=== PATIENT | male | born 1955 | race American Indian/Alaskan Native ===

== ENCOUNTER 2019-04-13 18:26 | Emergency (ER) | payer SELFPAY ==
[2019-04-13 19:02] VITALS: BP 121/83
--- NOTE | 2019-04-13 19:02 | Event Note ---
ED Screening Note Date of service: 04/13/19 Time: 18:58 ED Screening Note: This is a 63 y.o. M. that presents to the ER with feet pain and nausea and vomiting for 2 days. This initial assessment/diagnostic orders/clinical plan/treatment(s) is/are subject to change based on patients health status, clinical progression and re- assessment by fellow clinical providers in the ED. Further treatment and workup at subsequent clinical providers discretion. Patient/guardian urged not to elope from the ED as their condition may be serious if not clinically assessed and managed. Initial orders include: XR bilateral foot
--- NOTE | 2019-04-13 19:32 | XRay Report ---
Examination: Bilateral foot radiograph, 2 views, 04/13/2019 Clinical information: Bilateral foot pain. No history of trauma. Comparison: None. Findings: Right foot: There is a hallux valgus deformity. No acute bony fracture or focal soft tissue swelling is identified. Left foot: There is a hallux valgus deformity. No acute bony fracture or significant soft tissue swel ling is identified. Impression: 1. No radiographic evidence of acute bony abnormality of either foot. Signer Name: Brandy Abbott MD Signed: 04/13/2019 7:27 PM Workstation Name: [id number]
== END 2019-04-13 20:05 | disposition left against medical advice (07) ==
LOC: ED 18:26
DX: M79.673 Pain in unspecified foot (principal); Z53.21 Procedure and treatment not carried out due to patient leaving prior to being seen by health care provider

== ENCOUNTER 2019-06-25 11:07 | Emergency (ER) | payer SELFPAY ==
--- NOTE | 2019-06-25 13:12 | Event Note ---
Date of service: 06/25/19 Face to Face: 63-year-old gentleman presenting with presumed psychosis, agitated behavior, disorganized behavior. Patient not overtly violent, however, he is disorganized, and his thought structure is nonsensical. He is placed on a 1013, psychiatric consultation will be requested, gearcase assembler consultation will be requested, screening laboratory studies ordered. Vital Signs 06/25/19 11:37 Temperature 98.0 F Pulse Rate 62 Respiratory 18 Rate Blood Pressure 109/87 O2 Sat by Pulse 97 Oximetry
[2019-06-25 13:26] LABS: Basophils % (Auto) 0.5 % (0.0-1.8); Eosinophils # (Auto) 0.1 K/mm3 (0.0-0.4); Eosinophils % (Auto) 1.3 % (0.0-4.3); Hematocrit 39.1 % (35.5-45.6); Hemoglobin 13.5 gm/dl (11.8-15.2); Lymphocytes # (Auto) 1.6 K/mm3 (1.2-5.4); Lymphocytes % (Auto) 23.3 % (13.4-35.0); Mean Corpuscular HGB Conc 35 % (32-34); Mean Corpuscular Volume 86 fl (84-94); Monocytes # (Auto) 0.4 K/mm3 (0.0-0.8); Platelet Count 331 K/mm3 (140-440); Red Blood Count 4.53 M/mm3 (3.65-5.03); Red Cell Distribution Width 14.8 % (13.2-15.2)
[2019-06-25 13:47] LABS: BUN/Creatinine Ratio 13; Blood Urea Nitrogen 10 mg/dL (9-20); Calcium 9.4 mg/dL (8.4-10.2); Hemolysis Index 4
--- NOTE | 2019-06-25 14:08 | Emergency Department Report ---
ED Psych HPI - General Chief Complaint: Psych Stated Complaint: MH Time Seen by Provider: 06/25/19 12:32 Source: police Mode of arrival: Ambulatory - History of Present Illness Initial Comments: Patient is a 63-year-old male presents to the emergency room for SI/HI. he is a poor historian and it is very difficult to perform a full history. Patient states that if he had "rat poison front of him he would take it now." Patient also threatened to blow the hospital up. The police reported to nursing staff that patient was at a gas station and someone gave him $10 to buy some cigarettes and he took a cigarette solar designer/installer and tried to scratch someone's car and told them he was going to kill them. pt only endorses a history of hernia, otherwise he will not discuss his medical history. - Related Data Home Medications Medication Instructions Recorded Confirmed Last Taken No Known Home Medications [No 06/23/15 06/26/19 Unknown Reported Home Medications] Allergies Allergy/AdvReac Type Severity Reaction Status Date / Time No Known Allergies Allergy Unverified 06/23/15 10:24 ED Review of Systems ROS: Stated complaint: MH Other details as noted in HPI Comment: Unobtainable due to pts medical conditions ED Past Medical Hx - Past Medical History Additional medical history: PT NOT ANSWERING QUESTIONS AT THIS TIME; WILL ATTEMPT AGAIN - Surgical History Additional Surgical History: PT NOT ANSWERING QUESTIONS AT THIS TIME; WILL ATTEMPT AGAIN - Social History Smoking Status: Current Every Day Smoker - Medications Home Medications: Home Medications Medication Instructions Recorded Confirmed Last Taken Type No Known Home Medications [No 06/23/15 06/26/19 Unknown History Reported Home Medications] ED Physical Exam - General Limitations: No Limitations General appearance: alert - Head Head exam: Present: atraumatic, normocephalic - Eye Eye exam: Present: normal appearance, EOMI - ENT ENT exam: Present: mucous membranes moist - Respiratory Respiratory exam: Present: normal lung sounds bilaterally. Absent: respiratory distress, wheezes, rales, rhonchi, stridor, chest wall tenderness, accessory muscle use, decreased breath sounds, prolonged expiratory - Cardiovascular Cardiovascular Exam: Present: regular rate, normal rhythm, normal heart sounds. Absent: systolic murmur, diastolic murmur, rubs, gallop - GI/Abdominal GI/Abdominal exam: Present: soft, normal bowel sounds, hernia (pt has hernia just above the umbilicus which he easily reduces on his own). Absent: distended, tenderness, guarding, rebound, rigid - Neurological Exam Neurological exam: Present: alert, other (oriented to self) - Psychiatric Psychiatric exam: Present: other (rambling, jumping from conversation to conversation ) - Skin Skin exam: Present: warm, dry ED Course Vital Signs 06/25/19 06/25/19 06/25/19 11:37 18:00 21:08 Temperature 98.0 F 97.2 F L 97.4 F L Pulse Rate 62 91 H 98 H Respiratory 18 18 16 Rate Blood Pressure 109/87 Blood Pressure 100/79 110/88 [100/79] O2 Sat by Pulse 97 95 96 Oximetry 06/26/19 06/26/19 06/26/19 03:07 07:00 18:59 Temperature 98.6 F 97.8 F 98.4 F Pulse Rate 86 94 H 89 Respiratory 20 20 18 Rate Blood Pressure Blood Pressure 102/56 121/83 102/72 [100/79] O2 Sat by Pulse 96 97 99 Oximetry 06/26/19 06/27/19 06/27/19 20:00 01:15 09:42 Temperature 98.2 F 98.1 F 97.8 F Pulse Rate 99 H 89 75 Respiratory 18 20 20 Rate Blood Pressure Blood Pressure 93/62 109/74 109/75 [100/79] O2 Sat by Pulse 97 100 100 Oximetry 06/27/19 06/28/19 20:00 01:00 Temperature 98.3 F 98.2 F Pulse Rate 100 H 85 Respiratory 18 16 Rate Blood Pressure Blood Pressure 120/79 109/69 [100/79] O2 Sat by Pulse 98 96 Oximetry ED Medical Decision Making - Lab Data Result diagrams: 06/25/19 13:11 06/25/19 13:11 Lab Results 06/25/19 06/25/19 06/25/19 Range/Units 13:11 13:11 13:11 WBC (4.5-11.0) K/mm3 RBC (3.65-5.03) M/mm3 Hgb (11.8-15.2) gm/dl Hct (35.5-45.6) % MCV (84-94) fl MCH (28-32) pg MCHC (32-34) % RDW (13.2-15.2) % Plt Count (140-440) K/mm3 Lymph % (Auto) (13.4-35.0) % [place] % (Auto) (0.0-7.3) % Eos % (Auto) (0.0-4.3) % Baso % (Auto) (0.0-1.8) % Lymph # (1.2-5.4) K/mm3 [place] # (0.0-0.8) K/mm3 Eos # (0.0-0.4) K/mm3 Baso # (0.0-0.1) K/mm3 Seg Neutrophils % (40.0-70.0) % Seg Neutrophils # (1.8-7.7) K/mm3 Sodium 141 (137-145) mmol/L Potassium 4.0 (3.6-5.0) mmol/L Chloride 101.1 (98-107) mmol/L Carbon Dioxide 28 (22-30) mmol/L Anion Gap 16 mmol/L BUN 10 (9-20) mg/dL Creatinine 0.8 (0.8-1.5) mg/dL Estimated GFR > 60 ml/min BUN/Creatinine Ratio 13 % Glucose 111 H (75-100) mg/dL Hemoglobin A1c (4-6) % Calcium 9.4 (8.4-10.2) mg/dL Total Creatine Kinase (55-170) units/L Triglycerides (2-149) mg/dL Cholesterol (50-199) mg/dL LDL Cholesterol Direct (50-130) mg/dL HDL Cholesterol (40-59) mg/dL Cholesterol/HDL Ratio % Urine Color (Yellow) Urine Turbidity (Clear) Urine pH (5.0-7.0) Ur Specific [place] (1.003-1.030) Urine Protein (Negative) mg/dL Urine Glucose (UA) (Negative) mg/dL Urine Ketones (Negative) mg/dL Urine Blood (Negative) Urine Nitrite (Negative) Urine Bilirubin (Negative) Urine Urobilinogen (<2.0) mg/dL Ur Leukocyte Esterase (Negative) Urine WBC (Auto) (0.0-6.0) /HPF Urine RBC (Auto) (0.0-6.0) /HPF U Epithel Cells (Auto) (0-13.0) /HPF Urine Mucus /HPF Urine Sperm (SHOE MAKER) /HPF Salicylates < 0.3 L (2.8-20.0) mg/dL Urine Opiates Screen Urine Methadone Screen Acetaminophen < 5.0 L (10.0-30.0) ug/mL Ur Barbiturates Screen Ur Phencyclidine Scrn Ur Amphetamines Screen U Benzodiazepines Scrn Urine Cocaine Screen U Marijuana (THC) Screen Drugs of Abuse Note Plasma/Serum Alcohol (0-0.07) % 06/25/19 06/25/19 06/25/19 Range/Units 13:11 13:11 13:11 WBC 6.9 (4.5-11.0) K/mm3 RBC 4.53 (3.65-5.03) M/mm3 Hgb 13.5 (11.8-15.2) gm/dl Hct 39.1 (35.5-45.6) % MCV 86 (84-94) fl MCH 30 (28-32) pg MCHC 35 H (32-34) % RDW 14.8 (13.2-15.2) % Plt Count 331 (140-440) K/mm3 Lymph % (Auto) 23.3 (13.4-35.0) % [place] % (Auto) 6.0 (0.0-7.3) % Eos % (Auto) 1.3 (0.0-4.3) % Baso % (Auto) 0.5 (0.0-1.8) % Lymph # 1.6 (1.2-5.4) K/mm3 [place] # 0.4 (0.0-0.8) K/mm3 Eos # 0.1 (0.0-0.4) K/mm3 Baso # 0.0 (0.0-0.1) K/mm3 Seg Neutrophils % 68.9 (40.0-70.0) % Seg Neutrophils # 4.8 (1.8-7.7) K/mm3 Sodium (137-145) mmol/L Potassium (3.6-5.0) mmol/L Chloride (98-107) mmol/L Carbon Dioxide (22-30) mmol/L Anion Gap mmol/L BUN (9-20) mg/dL Creatinine (0.8-1.5) mg/dL Estimated GFR ml/min BUN/Creatinine Ratio % Glucose (75-100) mg/dL Hemoglobin A1c (4-6) % Calcium (8.4-10.2) mg/dL Total Creatine Kinase 200 H (55-170) units/L Triglycerides (2-149) mg/dL Cholesterol (50-199) mg/dL LDL Cholesterol Direct (50-130) mg/dL HDL Cholesterol (40-59) mg/dL Cholesterol/HDL Ratio % Urine Color (Yellow) Urine Turbidity (Clear) Urine pH (5.0-7.0) Ur Specific [place] (1.003-1.030) Urine Protein (Negative) mg/dL Urine Glucose (UA) (Negative) mg/dL Urine Ketones (Negative) mg/dL Urine Blood (Negative) Urine Nitrite (Negative) Urine Bilirubin (Negative) Urine Urobilinogen (<2.0) mg/dL Ur Leukocyte Esterase (Negative) Urine WBC (Auto) (0.0-6.0) /HPF Urine RBC (Auto) (0.0-6.0) /HPF U Epithel Cells (Auto) (0-13.0) /HPF Urine Mucus /HPF Urine Sperm (SHOE MAKER) /HPF Salicylates (2.8-20.0) mg/dL Urine Opiates Screen Urine Methadone Screen Acetaminophen (10.0-30.0) ug/mL Ur Barbiturates Screen Ur Phencyclidine Scrn Ur Amphetamines Screen U Benzodiazepines Scrn Urine Cocaine Screen U Marijuana (THC) Screen Drugs of Abuse Note Plasma/Serum Alcohol < 0.01 (0-0.07) % 06/25/19 06/25/19 06/27/19 Range/Units 20:41 20:41 06:38 WBC (4.5-11.0) K/mm3 RBC (3.65-5.03) M/mm3 Hgb (11.8-15.2) gm/dl Hct (35.5-45.6) % MCV (84-94) fl MCH (28-32) pg MCHC (32-34) % RDW (13.2-15.2) % Plt Count (140-440) K/mm3 Lymph % (Auto) (13.4-35.0) % [place] % (Auto) (0.0-7.3) % Eos % (Auto) (0.0-4.3) % Baso % (Auto) (0.0-1.8) % Lymph # (1.2-5.4) K/mm3 [place] # (0.0-0.8) K/mm3 Eos # (0.0-0.4) K/mm3 Baso # (0.0-0.1) K/mm3 Seg Neutrophils % (40.0-70.0) % Seg Neutrophils # (1.8-7.7) K/mm3 Sodium (137-145) mmol/L Potassium (3.6-5.0) mmol/L Chloride (98-107) mmol/L Carbon Dioxide (22-30) mmol/L Anion Gap mmol/L BUN (9-20) mg/dL Creatinine (0.8-1.5) mg/dL Estimated GFR ml/min BUN/Creatinine Ratio % Glucose (75-100) mg/dL Hemoglobin A1c 5.2 (4-6) % Calcium (8.4-10.2) mg/dL Total Creatine Kinase (55-170) units/L Triglycerides (2-149) mg/dL Cholesterol (50-199) mg/dL LDL Cholesterol Direct (50-130) mg/dL HDL Cholesterol (40-59) mg/dL Cholesterol/HDL Ratio % Urine Color Yellow (Yellow) Urine Turbidity Clear (Clear) Urine pH 7.0 (5.0-7.0) Ur Specific [place] 1.016 (1.003-1.030) Urine Protein <15 mg/dl (Negative) mg/dL Urine Glucose (UA) Neg (Negative) mg/dL Urine Ketones Neg (Negative) mg/dL Urine Blood Neg (Negative) Urine Nitrite Neg (Negative) Urine Bilirubin Neg (Negative) Urine Urobilinogen 2.0 (<2.0) mg/dL Ur Leukocyte Esterase Neg (Negative) Urine WBC (Auto) < 1.0 (0.0-6.0) /HPF Urine RBC (Auto) 1.0 (0.0-6.0) /HPF U Epithel Cells (Auto) < 1.0 (0-13.0) /HPF Urine Mucus Few /HPF Urine Sperm Few (SHOE MAKER) /HPF Salicylates (2.8-20.0) mg/dL Urine Opiates Screen Presumptive negative Urine Methadone Screen Presumptive negative Acetaminophen (10.0-30.0) ug/mL Ur Barbiturates Screen Presumptive negative Ur Phencyclidine Scrn Presumptive negative Ur Amphetamines Screen Presumptive negative U Benzodiazepines Scrn Presumptive negative Urine Cocaine Screen Presumptive negative U Marijuana (THC) Screen Presumptive negative Drugs of Abuse Note Disclamer Plasma/Serum Alcohol (0-0.07) % 06/27/19 Range/Units 06:38 WBC (4.5-11.0) K/mm3 RBC (3.65-5.03) M/mm3 Hgb (11.8-15.2) gm/dl Hct (35.5-45.6) % MCV (84-94) fl MCH (28-32) pg MCHC (32-34) % RDW (13.2-15.2) % Plt Count (140-440) K/mm3 Lymph % (Auto) (13.4-35.0) % [place] % (Auto) (0.0-7.3) % Eos % (Auto) (0.0-4.3) % Baso % (Auto) (0.0-1.8) % Lymph # (1.2-5.4) K/mm3 [place] # (0.0-0.8) K/mm3 Eos # (0.0-0.4) K/mm3 Baso # (0.0-0.1) K/mm3 Seg Neutrophils % (40.0-70.0) % Seg Neutrophils # (1.8-7.7) K/mm3 Sodium (137-145) mmol/L Potassium (3.6-5.0) mmol/L Chloride (98-107) mmol/L Carbon Dioxide (22-30) mmol/L Anion Gap mmol/L BUN (9-20) mg/dL Creatinine (0.8-1.5) mg/dL Estimated GFR ml/min BUN/Creatinine Ratio % Glucose (75-100) mg/dL Hemoglobin A1c (4-6) % Calcium (8.4-10.2) mg/dL Total Creatine Kinase (55-170) units/L Triglycerides 43 (2-149) mg/dL Cholesterol 160 (50-199) mg/dL LDL Cholesterol Direct 80 (50-130) mg/dL HDL Cholesterol 83 H (40-59) mg/dL Cholesterol/HDL Ratio 1.92 % Urine Color (Yellow) Urine Turbidity (Clear) Urine pH (5.0-7.0) Ur Specific [place] (1.003-1.030) Urine Protein (Negative) mg/dL Urine Glucose (UA) (Negative) mg/dL Urine Ketones (Negative) mg/dL Urine Blood (Negative) Urine Nitrite (Negative) Urine Bilirubin (Negative) Urine Urobilinogen (<2.0) mg/dL Ur Leukocyte Esterase (Negative) Urine WBC (Auto) (0.0-6.0) /HPF Urine RBC (Auto) (0.0-6.0) /HPF U Epithel Cells (Auto) (0-13.0) /HPF Urine Mucus /HPF Urine Sperm (SHOE MAKER) /HPF Salicylates (2.8-20.0) mg/dL Urine Opiates Screen Urine Methadone Screen Acetaminophen (10.0-30.0) ug/mL Ur Barbiturates Screen Ur Phencyclidine Scrn Ur Amphetamines Screen U Benzodiazepines Scrn Urine Cocaine Screen U Marijuana (THC) Screen Drugs of Abuse Note Plasma/Serum Alcohol (0-0.07) % - Medical Decision Making Patient is a 63-year-old male presents to the emergency room for SI/HI. he is a poor historian and it is very difficult to perform a full history. Patient states that if he had "rat poison front of him he would take it now." Patient also threatened to blow the hospital up. The police reported to nursing staff that patient was at a gas station and someone gave him $10 to buy some cigarettes and he took a cigarette solar designer/installer and tried to scratch someone's car and told them he was going to kill them. pt only endorses a history of hernia, otherwise he will not discuss his medical history. vitals are stable. pt expresses SI and HI with plans. pt was placed on 1013. stat mental health consult was placed. labs are stable. UDS is negative. at this time pt does not have a medical reason that would prevent psychiatric evaluation/admission - Differential Diagnosis SI, HI, hallucinations, psychosis, Bipolar, Schizophrenia Critical care attestation.: If time is entered above; I have spent that time in minutes in the direct care of this critically ill patient, excluding procedure time. ED Disposition Clinical Impression: Suicidal ideation, Homicidal ideation Disposition: [id number]/TX-65 PSY HOSP/PSY UNIT Is pt being admited?: No Does the pt Need Aspirin: No Condition: Stable Referrals: PRIMARY CARE, [Primary Care Provider] - 3-5 Days
[2019-06-25] MEDS: HALOPERIDOL LACTATE 5 MG/1 ML INJ IM PRN (15:19)
[2019-06-25] MEDS: LORazepam 2 MG/ML VIAL IM PRN (15:19)
[2019-06-25 21:06] LABS: Amphetamine Screen,Urine PRESUMPTIVE NEGATIVE; Benzodiazepines Screen,Urine PRESUMPTIVE NEGATIVE; Cannabinoid Screen,Urine PRESUMPTIVE NEGATIVE; Cocaine Screen,Urine PRESUMPTIVE NEGATIVE; Methadone Screen,Urine PRESUMPTIVE NEGATIVE; Opiate Screen,Urine PRESUMPTIVE NEGATIVE
[2019-06-25 21:14] LABS: Bilirubin,Urine NEG (Negative); Blood,Urine NEG (Negative); Color,Urine Yellow (Yellow); Mucus,Urine FEW /HPF; Protein,Urine <15 mg/dL mg/dL (Negative); Sperm,Urine FEW /HPF (NP); WBC,Urine < 1.0 /HPF (0.0-6.0)
--- NOTE | 2019-06-26 09:44 | Consultation ---
History of Present Illness - Reason for Consult Consult date: 06/26/19 Reason for consult: Mental Health Evaluation Requesting physician: PAUL KNIGHT - Chief Complaint Chief complaint: "I didn't do anything" - History of Present Psychiatric Illness 63 y.o. AA male who presented to the ER per the local police for si/hi'S. Today the patient was tangent and disorganized during the assessment. He could not answer most questions logically when asked. He discussed inappropriate sexual matters throughout the interview. He had to be redirected several times to keep him on topic. He would not confirm or deny being homeless when asked. He denies SI/HI's. Overall, the patient's is a poor historian at this time. Medications and Allergies Allergies Allergy/AdvReac Type Severity Reaction Status Date / Time No Known Allergies Allergy Unverified 06/23/15 10:24 Home Medications Medication Instructions Recorded Confirmed Last Taken Type No Known Home Medications [No 06/23/15 06/26/19 Unknown History Reported Home Medications] Active Meds: Active Medications Haloperidol Lactate (Haldol) 5 mg IM Q6HR PRN PRN Reason: Agitation Last Admin: 06/25/19 15:19 Dose: 5 mg Documented by: Lorazepam (Ativan) 2 mg IM Q4HR PRN PRN Reason: Agitation Last Admin: 06/25/19 15:19 Dose: 2 mg Documented by: Past psychiatric history - Past Medical History Past Medical History: No medical history Past Surgical History: No surgical history - past Psychiatric treatment and history psychiatric treatment history: Unable to obtain a psy hx and fam psy hx. - Social History Social history: other (possibly homeless) Mental Status Exam - Vital signs Last Vital Signs Temp 97.8 F 06/26/19 07:00 Pulse 94 H 06/26/19 07:00 Resp 20 06/26/19 07:00 BP 121/83 06/26/19 07:00 Pulse Ox 97 06/26/19 07:00 - Exam Narrative exam: MSE: Appearance: calm Behavior: regular eye contact Speech: regular rate and loud tone Mood: "okay" Affect: congruent to mood Thought Process: disorganized, tangential Thought Content: denies SI/HI's Motor Activity: ambulatory Cognition: A/Ox 3 Insight: poor Judgment: poor + Results Result Diagrams: 06/25/19 13:11 06/25/19 13:11 Abnormal lab results 06/25/19 06/25/19 06/25/19 Range/Units 13:11 13:11 13:11 MCHC (32-34) % Glucose 111 H (75-100) mg/dL Total Creatine Kinase (55-170) units/L Salicylates < 0.3 L (2.8-20.0) mg/dL Acetaminophen < 5.0 L (10.0-30.0) ug/mL 06/25/19 06/25/19 Range/Units 13:11 13:11 MCHC 35 H (32-34) % Glucose (75-100) mg/dL Total Creatine Kinase 200 H (55-170) units/L Salicylates (2.8-20.0) mg/dL Acetaminophen (10.0-30.0) ug/mL All other labs normal. Assessment and Plan Assessment and plan: Impression: Unspecified Psychosis. Today the patient was tangent and disorganized during the assessment. DDx: Schizophrenia, Bipolar DO with psychosis Recommendation/Plan: Continue 1013 and start Zyprexa 5 mg PO HS for psychosis. Attempted to discuss possible metabolic side effects of Zyprexa with the patient. Baseline A1c/Lipid Panel ordered for the AM. Dispo: The patient was referred to inpatient psy services. Will staff with Dr Alexandra Florentino.
[2019-06-26] MEDS: HALOPERIDOL LACTATE 5 MG/1 ML INJ IM PRN (15:15)
[2019-06-26] MEDS: LORazepam 2 MG/ML VIAL IM PRN (15:15)
[2019-06-27 08:58] LABS: Chol/HDL Ratio 1.92 %
--- NOTE | 2019-06-27 14:07 | Progress Note ---
Subjective - Reason for Consult Consult date: 06/27/19 Reason for consult: Psychiatric Follow-up Evaluation - Chief Complaint Chief complaint: "I feel better" Patient is a 63 y.o. AA male who presented to the ER per the local police for SI/HI's. Patient presents anxious and irritable during the assessment. Today the patient continues to have tangent/disorganized thought process. Patient is rambling throughout the assessment. He could not answer most questions logically when asked. He reports " I want to go to court. I need to talk to the pinsetter mechanic automatic" He had to be redirected several times to keep him on topic. Patient endorses paranoid delusions and auditory hallucinations. He denies SI/HI's and VH's. Mental Status Exam - Vital signs Last Vital Signs Temp 97.8 F 06/27/19 09:42 Pulse 75 06/27/19 09:42 Resp 20 06/27/19 09:42 BP 109/75 06/27/19 09:42 Pulse Ox 100 06/27/19 09:42 - Exam Narrative exam: MSE: Appearance: anxious, irritable ; poorly groomed/appears older than stated age Behavior: regular eye contact Speech: regular rate and loud tone ; rambling Mood: "I feel better" Affect: congruent to mood Thought Process: disorganized, tangential Thought Content: denies SI/HI's and VH's ; + AH's and paranoid delusions Motor Activity: ambulatory Cognition: A/O x 2 Insight: poor Judgment: poor Assessment and Plan Impression: Unspecified Psychosis. Today the patient is anxious and irritable during the assessment. He needs constant redirection. Thought process continues to be tangent/ disorganized. Paranoid delusions noted. DDx: Schizophrenia, Bipolar DO with psychosis Recommendation/Plan: 1. Continue 1013. 2. Continue Zyprexa 5 mg PO HS for psychosis. Attempted to discuss possible metabolic side effects of Zyprexa with the patient. Reviewed HgA1C and lipid panel. Disposition: The patient was referred to inpatient psychiatric services. Will staff with Dr Alexandra Florentino.
--- NOTE | 2019-06-28 10:23 | Progress Note ---
Subjective - Reason for Consult Consult date: 06/28/19 Reason for consult: Psychiatry Follow-up - Chief Complaint Chief complaint: "What do you want" 63 y.o. AA male who presented to the ER per the local police for si/hi'S. Today the patient continue to be tangent and disorganized during the assessment he cannot logically answer any questions when asked. He has loose associations during the interview. He had to be redirected several times to keep him topic. He denies SI/HI's and VH's. He would not confirm or deny AH's. No indication of side effects from his medication. Mental Status Exam - Vital signs Last Vital Signs Temp 97.4 F L 06/28/19 07:30 Pulse 73 06/28/19 07:30 Resp 16 06/28/19 07:30 BP 100/75 06/28/19 07:30 Pulse Ox 98 06/28/19 07:30 - Exam Narrative exam: MSE: Appearance: calm Behavior: regular eye contact Speech: regular rate and loud tone Mood: "okay" Affect: congruent to mood Thought Process: still disorganized, tangential, loose associations Thought Content: denies SI/HI's and VH's Motor Activity: ambulatory Cognition: A/Ox 3 Insight: poor Judgment: poor + Assessment and Plan Impression: Unspecified Psychosis. Today the patient was still disorganized and tangent during the assessment. DDx: Schizophrenia, Bipolar DO with psychosis Recommendation/Plan: Continue 1013 and increase Zyprexa to 10 mg PO HS for psychosis. Attempted to discuss possible metabolic side effects of Zyprexa with the patient. Dispo: The patient was accepted ta [facility] for inpatient psy services pending transport time. Will staff with Dr Alexandra Florentino.
[2019-06-29 08:56] VITALS: BP 103/77
== END 2019-06-29 16:41 ==
LOC: EEVIPCON 11:07 → ED 11:07
DX: F23 Brief psychotic disorder (principal)
CPT/HCPCS: 36415; 80048; 80061; 80307; 81001; 82550; 83036; 85025; 96372; 99285; J1630; J2060; 80320; G0480